=== PATIENT | female | born 1960 | race African-American/Black ===

== ENCOUNTER 2022-04-15 21:32 | Emergency (ER) | payer BC ==
[~2022-04-15] VITALS: Ht 160 cm; Wt 60.2 kg
[2022-04-15] MEDS ORDERED: AMLODIPINE 5MG TABLET PO ONE (23:00)
[2022-04-15 23:40] LABS: CHLORIDE 108 mEq/L (98-107)
[2022-04-15 23:42] LABS: BASOPHILS % 0.4 % (0.0-2.0); HEMATOCRIT. 43.4 % (36.0-48.0); HEMOGLOBIN. 14.2 g/dL (12.0-16.0); LYMPHOCYTES % 46.9 % (20.0-50.0); MEAN CORPUSCULAR HEMOGLOBIN 28.2 pg (28.0-32.0); MEAN CORPUSCULAR VOLUME 85.8 fL (81.0-99.0); MEAN PLATELET VOLUME 8.8 fl (7.4-10.4); MONOCYTES % 7.5 % (2.0-8.0); NEUTROPHILS % 42.2 % (40.0-76.0); PLATELET 200 x1000/uL (130-400); RED BLOOD CELL COUNT 5.05 mill/uL (4.2-5.4); RED CELL DISTRIBUTION WIDTH 13.7 % (11.6-14.6)
[2022-04-16 00:29] LABS: CLARITY URINE CLEAR (CLEAR); COLOR URINE YELLOW (YELLOW); KETONES URINE 3+ (NEGATIVE); LEUKOCYTE ESTERASE URINE NEGATIVE (NEGATIVE); NITRITE URINE NEGATIVE (NEGATIVE); OCCULT BLOOD URINE NEGATIVE (NEGATIVE); PROTEIN URINE TRACE (NEGATIVE); SPECIFIC GRAVITY URINE 1.019 (1.005-1.030); UROBILINOGEN URINE 0.2 E.U./dL (0.2-1.0)
[2022-04-16] MEDS ORDERED: HYDRALAZINE 20MG/ML VIAL IV ONE (01:30)
[2022-04-16] MEDS ORDERED: AMLO10TA4 MT (01:51)
[2022-04-16] MEDS ORDERED: AMLODIPINE 5MG TABLET PO NR (02:00)
[2022-04-16] MEDS: SODIUM CHLORIDE 0.9% 500 ML IV ONE ×2 (02:30→02:46)
[2022-04-16] MEDS ORDERED: LORAZEPAM 2MG/ML CPJ IV ONE (02:45)
[2022-04-16 03:30] VITALS: BP 169/93
== END 2022-04-16 03:30 | disposition home or self-care (01) ==
LOC: ER 21:32
DX: I16.0 Hypertensive urgency (principal); E11.9 Type 2 diabetes mellitus without complications; F41.9 Anxiety disorder, unspecified; F32.A Depression, unspecified
CPT/HCPCS: 36415; 71045; 80053; 81003; 82962; 83880; 84484; 85025; 93005; 96361; 96374; 96375; 99285; J0360; J2060